=== PATIENT | male | born 1985 | race Caucasian/White ===

== ENCOUNTER 2022-11-23 15:02 | Outpatient (REF) | payer OTHER, SELFPAY ==
--- NOTE | ~2022-11-23 | XR_ITS ---
EXAMINATION: XR LUMBOSACRAL SPINE CLINICAL INFORMATION: Sacroiliitis, pain COMPARISON: None available. TECHNIQUE: Three views of the lumbosacral spine. FINDINGS: Generalized diffuse endplate spurring. Moderate disc space narrowing L4-L5. No subluxation. Mild narrowing of the facet joints at this level as well. No spondylolysis. Minimal sclerosis about the sacroiliac joints. XR/XR lumbar spine 2-3V IMPRESSION: Mild to moderate degenerative disc disease at L4-L5.
== END 2022-11-23 15:03 | disposition home or self-care (01) ==
LOC: HO.XRAY 15:02
PROVIDERS: PCP Family Medicine; Visit Provider Family Medicine
DX: M46.1 Sacroiliitis, not elsewhere classified (principal)
CPT/HCPCS: 72100